=== PATIENT | male | born 1995 | race Caucasian/White ===

== ENCOUNTER 2024-10-31 19:35 | Emergency (ER) | payer SELFPAY ==
[2024-10-31] MEDS: Lidocaine 1% 5 ML VIAL INJECT ONE (20:29)
[2024-10-31] MEDS: Diphtheria,Pertussis(Acell),Tetanus Vaccine 0.5 ML Syringe IM ONE (20:29)
[2024-10-31] MEDS: Bacitracin Oint 1 GM U/D Packet TOP ONE (20:31)
== END 2024-10-31 21:06 | disposition home or self-care (01) ==
LOC: JP.ED 19:35
DX: S81.811A Laceration without foreign body, right lower leg, initial encounter (principal); W17.81XA Fall down embankment (hill), initial encounter
CPT/HCPCS: 12002; 90471; 90715; 99282; J2003